=== PATIENT | male | born 1940 | race American Indian/Alaskan Native ===

== ENCOUNTER 2017-02-14 08:11 | Emergency (ER) | payer MEDICARE ==
[2017-02-14] MEDS ORDERED: DELTASONE PO ONE (11:50)
[2017-02-14] MEDS ORDERED: TORADOL IM ONE (11:50)
--- NOTE | 2017-02-14 11:59 | Emergency Department Report ---
ED Back Pain/Injury HPI - General Chief Complaint: Back Pain/Injury Stated Complaint: LOWER BACK/LT THIGH/HIP PAIN Time Seen by Provider: 02/14/17 11:44 Source: patient Limitations: No Limitations - History of Present Illness Initial Comments: Back pain for one week after working in the yard. Pain radiates to his left knee. Describes it as sharp. Worse when he stands vertically. He has no weakness. No abdominal pain no pain in the flank. Denies fevers chills. MD Complaint: back pain -: week(s) Place: home Radiation: left leg Severity: moderate Quality: sharp Consistency: constant Improves With: none Worsens With: movement, other (movement) Associated Symptoms: denies other symptoms. denies: confusion, weakness, chest pain - Related Data Previous Rx's Medication Instructions Recorded Last Taken Type Ibuprofen [Motrin] 600 mg PO Q8H PRN #15 tablet 02/14/17 Unknown Rx predniSONE [Deltasone] 40 mg PO ONCE #6 tablet 02/14/17 Unknown Rx Allergies Allergy/AdvReac Type Severity Reaction Status Date / Time No Known Allergies Allergy Unverified 02/14/17 09:01 ED Review of Systems ROS: Stated complaint: LOWER BACK/LT THIGH/HIP PAIN Other details as noted in HPI Comment: All other systems reviewed and negative Constitutional: no symptoms reported ENT: denies: ear pain Respiratory: no symptoms reported Cardiovascular: denies: chest pain, palpitations Gastrointestinal: denies: abdominal pain, nausea Musculoskeletal: back pain Neurological: denies: weakness, numbness, paresthesias ED Past Medical Hx - Past Medical History Hx Hypertension: Yes - Surgical History Past Surgical History?: No Additional Surgical History: prostate - Family History Family history: no significant - Social History Smoking Status: Former Smoker Substance Use Type: None - Medications Home Medications: Home Medications Medication Instructions Recorded Confirmed Last Taken Type Ibuprofen [Motrin] 600 mg PO Q8H PRN #15 tablet 02/14/17 Unknown Rx predniSONE [Deltasone] 40 mg PO ONCE #6 tablet 02/14/17 Unknown Rx ED Physical Exam - General Limitations: No Limitations - Head Head exam: Present: atraumatic, normocephalic - Neck Neck exam: Absent: tenderness - GI/Abdominal GI/Abdominal exam: Present: soft. Absent: distended, tenderness, guarding, pulsatile mass - Extremities Exam Extremities exam: Present: normal inspection. Absent: full ROM, tenderness - Expanded Back Exam Expanded Back exam: Absent: saddle anesthesia Back exam: Sciatic Notch Tenderness: Left (no point tenderness on L-spine) - Neurological Exam Neurological exam: Present: alert, oriented X3, CN II-XII intact - Psychiatric Psychiatric exam: Present: normal affect ED Course Vital Signs 02/14/17 09:01 Temperature 98 F Pulse Rate 64 Respiratory 18 Rate Blood Pressure 132/85 O2 Sat by Pulse 97 Oximetry ED Medical Decision Making - Medical Decision Making 76-year-old with muscular skeletal back pain and no evidence of neurological complaints. He has no pulsatile masses and abdomen. Likely sciatica. Plan short course of NSAIDs with steroids for 3 days. Critical care attestation.: If time is entered above; I have spent that time in minutes in the direct care of this critically ill patient, excluding procedure time. ED Disposition Clinical Impression: Sciatica Disposition: DC-01 TO HOME OR SELFCARE Is pt being admited?: No Does the pt Need Aspirin: No Condition: Stable Instructions: Sciatica (ED) Prescriptions: Ibuprofen [Motrin] 600 mg PO Q8H PRN #15 tablet PRN Reason: Pain predniSONE [Deltasone] 40 mg PO ONCE #6 tablet Referrals: PRIMARY CARE, [Primary Care Provider] - 3-5 Days
[2017-02-14 13:35] VITALS: BP 143/73
== END 2017-02-14 12:20 | disposition home or self-care (01) ==
LOC: ED 08:11
DX: M54.30 Sciatica, unspecified side (principal); I10 Essential (primary) hypertension; Z87.891 Personal history of nicotine dependence
CPT/HCPCS: 96372; 99282; J1885; J7512